=== PATIENT | male | born 1950 | race African-American/Black ===

== ENCOUNTER → 2016-06-24 | Outpatient (CLI) | payer OTHER ==
[~2016-06-24] MED LIST: ALBUTEROL17 GM INH; DIMETAPP COLD120 ML; HYDROCHLOROTHIA25 MG PO; KETOPROFEN PO; MULTIVITAMIN PO; NORCO 5/325 TAB1 TAB PO; SYMBICORT INH; TYLENOL325 M1 PO
--- NOTE | ~2016-06-24 | CT2 ---
[facility] A Service of [facility] & [facility] RADIOLOGY TEXT RESULTS PATIENT: LUKAS CHO LOCATION: [facility] : 52 UNIT #: [id number] AGE: [address]: Waqar Pérez MD SEX: M ORDER DR: [id number] [facility] [address] [facility] [place], [place] [address] [id number] O MR#: [id number] Acc #: [id number] NAME: LUKAS CHO : 1950 SEX: M STUDY DATE/TIME: 06/24/2016 11:21 UNIT: [facility] ROOM: STUDY DESCRIPTION: CT Abd and Pelv W Cont Attending Physician: Waqar Pérez M.D. Referring Physician: Waqar Pérez M.D. Ordering Physician: Waqar Pérez M.D. Primary Care Physician: Tamir Burden M.D. MEDICAL IMAGING REPORT This report is preliminary unless electronic signature is present EXAM CT abdomen and pelvis with contrast, date of study 06/24/2016. HISTORY History of lymphoma; routine follow up. No new symptoms. COMPARISON None PROCEDURE Axial CT abdomen and pelvis with IV contrast. Multiplanar reformats. This CT exam was performed with one or more of the following radiation dose reduction techniques: automatic exposure control, adjustment of mA and/or kV according to patient size, and iterative reconstruction. FINDINGS There is a simple cyst in the left lobe of the liver, but no hepatic mass is seen. The liver is otherwise normal, as are the spleen, pancreas, kidneys, and adrenal glands. The aorta is normal in caliber. PELVIS: There is limited diverticulosis without diverticulitis. The appendix is normal. There is no hernia or bowel obstruction. There are 2 pelvic soft tissue masses, 1 on the right measuring 5.6 x 6.0 x 5.5 cm and 1 on the left measuring 8.6 x 3.3 x 3.4 cm. There is also a left patch-type bladder diverticulum measuring about 3.4 cm. There has been a previous right inguinal herniorrhaphy. There is a small fluid density lesion along the course of the right spermatic cord or immediately adjacent to it, about 15 mm in size. [facility]. [facility] A Service of [facility] RADIOLOGY TEXT RESULTS PATIENT: LUKAS CHO LOCATION: [facility] : 52 UNIT #: [id number] AGE: [address]: Waqar Pérez MD SEX: M ORDER DR: There is no bone erosion or destruction. There are spinal degenerative changes. IMPRESSION There are no prior CT abdomen and pelvis exams for comparison. While there is no abdominal adenopathy, there are 2 pelvic masses, 1 on the left measuring 8.6 x 3.3 x 3.4 cm and 1 on the right measuring 5.6 x 6.0 x 5.5 cm, both along the posterior margin of the bladder. On the left, there is also a hutch-type bladder diverticulum. Presumably this represents lymphoma involvement of the pelvis, though the patient does have a history of prostate cancer and has had prostate surgery. Metastatic prostate adenopathy is possible, but felt less likely. Again, there are no old comparison exams, except for a PET/CT of January 2015. The pelvic masses are relatively unchanged since that time. The right pelvic mass measured 5.5 x 6 cm on axial images at that time, compared to 5.5 x 6 cm now, and the left pelvic mass was measured at 7.1 x 3.0 cm on axial images, compared to about 8.6 x 3.3 cm currently, again a fairly subtle distinction size-sims, likely indicating no interval growth. At the time of that CT, both masses appeared PET-negative, as well. Dictated by... Alexx Todd M.D. THIS IS AN ELECTRONICALLY VERIFIED REPORT Alexx Todd M.D. at 06/26/2016 1:22 PM JENNIFER/raissa TD: 06/24/2016 17:00 JOB #: [id number] MEDICAL IMAGING REPORT Page 1 of 1 COPY
--- NOTE | ~2016-06-24 | CT55 ---
[facility] A Service of [facility] & [facility] RADIOLOGY TEXT RESULTS PATIENT: LUKAS CHO LOCATION: [facility] : 51 UNIT #: [id number] AGE: [address]: Waqar Pérez MD SEX: M ORDER DR: [id number] [place] [id number] [facility]. [place], [place] [address] [id number] O MR#: [id number] Acc #: [id number] NAME: LUKAS CHO : 1950 SEX: M STUDY DATE/TIME: 06/24/2016 11:21 UNIT: [facility] ROOM: STUDY DESCRIPTION: CT Chest W Con Attending Physician: Waqar Pérez M.D. Referring Physician: Waqar Pérez M.D. Ordering Physician: Waqar Pérez M.D. Primary Care Physician: Tamir Burden M.D. MEDICAL IMAGING REPORT This report is preliminary unless electronic signature is present EXAM Chest CT with contrast. DATE OF STUDY 06/24/2016 PROCEDURE Axial contrast-enhanced chest CT with multiplanar reformats. This CT exam was performed with one or more of the following radiation dose reduction techniques: automatic exposure control, adjustment of mA and/or kV according to patient size, and iterative reconstruction. CLINICAL HISTORY History of lymphoma, routine followup. No new symptoms. FINDINGS There is no pulmonary infiltrate, though there is some scarring in the posteromedial right lower lobe, unchanged. There is no effusion. There is slight emphysematous change but no pneumothorax. There is some soft tissue thickening along the pericardium on the left superiorly, measured at about 16 mm in thickness on the prior study and about 11 mm in thickness on the current exam. Small amount of confluent soft tissue density in the AP window is stabilely redemonstrated. Small soft tissue nodule in the anterior mediastinum, just anterior to the aorta and pulmonary artery measured 2.1 cm on the prior study and measures about 1.8 cm on the current exam. Images of the upper abdomen show no acute abnormality. Left-sided Tawlet-P-Uovb remains in place. Aorta is normal in caliber. [facility] A Service of [facility] RADIOLOGY TEXT RESULTS PATIENT: LUKAS CHO LOCATION: [facility] : 51 UNIT #: [id number] AGE: [address]: Waqar Pérez MD SEX: M ORDER DR: IMPRESSION Slight decrease in upper mediastinal soft tissue when compared to the study of 05/15/2015. Please see measurements above. No new abnormality. No evidence of new or recurrent disease. Dictated by... Alexx Todd M.D. THIS IS AN ELECTRONICALLY VERIFIED REPORT Alexx Todd M.D. at 06/26/2016 1:22 PM JENNIFER/jean TD: 06/24/2016 16:23 JOB #: [id number] MEDICAL IMAGING REPORT Page 1 of 1 COPY
[2016-06-24 13:25] LABS: POC - CREATININE 0.78 mg/dL (0.64-1.27); POC - GFR >60.0 mL/min (>60)
== END | disposition home or self-care (01) ==
LOC: CCAT 09:20
PROVIDERS: Radiology Radiation Oncology
DX: C85.90 Non-Hodgkin lymphoma, unspecified, unspecified site (principal); R19.00 Intra-abdominal and pelvic swelling, mass and lump, unspecified site; N32.3 Diverticulum of bladder; Z85.46 Personal history of malignant neoplasm of prostate; Z98.890 Other specified postprocedural states
CPT/HCPCS: 71260; 74177; 82565; Q9967

== ENCOUNTER → 2016-10-07 | Outpatient (CLI) | payer OTHER ==
--- NOTE | ~2016-10-07 | CT2 ---
[facility] A Service of [facility] & [facility] RADIOLOGY TEXT RESULTS PATIENT: LUKAS CHO [facility] : 51 UNIT #: [id number] AGE: [address]: Mirza Gupta MD SEX: M ORDER DR: [id number] [facility] [address] [place], [place] [address] [id number] O MR#: [id number] Acc #: [id number] NAME: LUKAS CHO : 1950 SEX: M STUDY DATE/TIME: [facility] ROOM: STUDY DESCRIPTION: CT Abd and Pelv W Cont Attending Physician: Mirza Gupta M.D. Referring Physician: Mirza Gupta M.D. Ordering Physician: Mirza Gupta M.D. Primary Care Physician: Tamir Burden M.D. MEDICAL IMAGING REPORT This report is preliminary unless electronic signature is present EXAM CT abdomen pelvis with contrast 10/07/2016 1023 hours HISTORY 66-year-old man with history of Hodgkin's lymphoma diagnosed 2 years ago and prostate cancer 5 years ago. Status post chemo and radiation therapy for followup. Observation for suspected malignant neoplasm. The patient has no current complaints today. COMPARISON CT abdomen and pelvis 06/24/[address] images were obtained from the lung bases through the pubic symphysis with oral and intravenous contrast. Isovue-370 100 mL IV. Total exam DLP for the chest, abdomen and pelvis CT is 1079 mGy - cm. This CT exam was performed with one or more of the following radiation dose reduction techniques: automatic exposure control, adjustment of mA and/or kV according to patient size, and iterative reconstruction. FINDINGS Images through the abdomen demonstrate normal-sized liver and spleen. There is no splenic lesion. There are 3 low-density liver cysts unchanged. There are no new liver lesions. The pancreas, gallbladder, bile ducts and adrenal glands are normal. The kidneys enhance normally. The abdominal aorta is normal in caliber. No adenopathy is seen in the abdomen. CT pelvis demonstrates bilateral soft tissue rounded to ovoid masses posterior to the bladder and superior to the seminal vesicles. Left-sided lesion measures 7.6 x 3.1 x 6.9 cm previously 8.5 x 3.5 x 7.6 cm suggesting a slight decrease in size. Right posterior mass measures 5.9 x 6.4 x 6.0 cm; previously 5.9 x 6.1 x 5.8 cm also likely unchanged. There [facility] A Service of [facility] RADIOLOGY TEXT RESULTS PATIENT: LUKAS CHO LOCATION: [facility] : 51 UNIT #: [id number] AGE: [address]: Mirza Gupta MD SEX: M ORDER DR: is a left-sided posterior bladder diverticulum unchanged. There is a small right inguinal lymph node measuring 1.6 cm previously 1.5 cm. No new nodes are seen. IMPRESSION 1. The CT abdomen is remarkable only for 3 benign simple cysts in the liver. There is no abdominal adenopathy and the spleen is normal in size. 2. CT pelvis demonstrates bilateral round ovoid soft tissue masses posterior to the bladder and superior and separate from the seminal vesicles, similar in size to 06/24/2016. The left-sided lesion may be minimally smaller. These are nonspecific. Pathologic nodes related to lymphoma or possibly related to prior prostate cancer are possible. There is a small 1.5 cm right inguinal node not changed from 06/24/2016. Dictated by... Paulina Gray M.D. THIS IS AN ELECTRONICALLY VERIFIED REPORT Paulina Gray M.D. at 10/08/2016 9:27 AM JOYA/oswaldo TD: 10/07/2016 16:59 JOB #: [id number] MEDICAL IMAGING REPORT Page 1 of 1 COPY
--- NOTE | ~2016-10-07 | CT55 ---
[facility] A Service of [facility] & [facility] RADIOLOGY TEXT RESULTS PATIENT: LUKAS CHO LOCATION: [facility] : 51 UNIT #: [id number] AGE: [address]: Mirza Gupta MD SEX: M ORDER DR: [id number] [facility] [address] [place], [place] [address] [id number] O MR#: [id number] [facility] #: [id number] NAME: LUKAS CHO : 1950 SEX: M STUDY DATE/TIME: 10/07/2016 10:23 UNIT: [facility] ROOM: STUDY DESCRIPTION: CT Chest W Con Attending Physician: Mirza Gupta M.D. Referring Physician: Mirza Gupta M.D. Ordering Physician: Mirza Gupta M.D. Primary Care Physician: Tamir Burden M.D. MEDICAL IMAGING REPORT This report is preliminary unless electronic signature is present EXAM CT chest with contrast 10/07/2016 1023 hours HISTORY 66-year-old man with history of Hodgkin's lymphoma diagnosed 2 years ago, prostate cancer 5 years ago with prior chemo and radiation therapy. Observation for suspected malignant neoplasm. No acute complaints today. COMPARISON CT chest 06/24/[address] images were obtained from the thoracic inlet through the adrenal glands with contrast. Sagittal and coronal reconstructions were performed. Contrast was Isovue-370 100 mL IV. Total exam DLP for the chest, abdomen and pelvis CT today is 1079 mGy-cm. This CT exam was performed with one or more of the following radiation dose reduction techniques: Automatic exposure control, adjustment of mA and/or kV according to patient size, and iterative reconstruction. FINDINGS Images through the thoracic inlet demonstrate no thyroid lesion or supraclavicular adenopathy. There is a left-sided subclavian port catheter with tip in SVC. Images through the chest demonstrate mild bilateral gynecomastia without change. There is an anterior mediastinal node measuring 1.8 cm, previously 1.8 cm. Abnormal soft tissue density in the left paramediastinal region abutting the main pulmonary artery and anterior to the left hilum is stable, with transverse dimension 1.3 cm, previously between 1.2 and 1.4 cm. This appears stable. There is no pericardial or pleural fluid. There is no new adenopathy. [facility] A Service of [facility] RADIOLOGY TEXT RESULTS PATIENT: LUKAS CHO LOCATION: [facility] : 51 UNIT #: [id number] AGE: [address]: Mirza Gupta MD SEX: M ORDER DR: Lung window images demonstrate stable emphysematous changes. There are no new pulmonary densities or nodules. IMPRESSION 1. No appreciable change from 06/24/2016. Anterior mediastinal node measures 1.8 cm, previously 1.8 cm. Abnormal soft tissue density in the left side of the mediastinum abutting the main pulmonary artery and the left hilum is stable, with transverse dimension 1.3 cm, previously measuring between 1.2 and 1.4 cm. No new nodes are seen. 2. Emphysematous changes in the lungs with no new pulmonary or pleural findings. Dictated by... Paulina Gray M.D. THIS IS AN ELECTRONICALLY VERIFIED REPORT Paulina Gray M.D. at 10/07/2016 5:02 PM JOYA/margo TD: 10/07/2016 16:41 JOB #: [id number] MEDICAL IMAGING REPORT Page 1 of 1 COPY
[2016-10-07 12:11] LABS: POC - CREATININE 1.04 mg/dL (0.64-1.27); POC - GFR >60.0 mL/min (>60)
== END | disposition home or self-care (01) ==
LOC: CCAT 08:55
PROVIDERS: Internal Medicine Medical Oncology
DX: C81.70 Other Hodgkin lymphoma, unspecified site (principal); J98.4 Other disorders of lung; K76.89 Other specified diseases of liver; N32.89 Other specified disorders of bladder
CPT/HCPCS: 71260; 74177; 82565; Q9967